=== PATIENT | male | born 1940 | race Caucasian/White ===

== ENCOUNTER → 2020-02-12 | Outpatient (CLI) | payer OTHER | LOC: SJCVC 10:24 | PROVIDERS: ATTEND Internal Medicine | DX: R94.31 Abnormal electrocardiogram [ECG] [EKG] (principal); I45.10 Unspecified right bundle-branch block; I10 Essential (primary) hypertension; E78.5 Hyperlipidemia, unspecified; Z79.899 Other long term (current) drug therapy; Z87.891 Personal history of nicotine dependence ==